=== PATIENT | male | born 1980 | race Hispanic/Latino ===

== ENCOUNTER 2024-04-16 17:46 | Emergency (ER) | payer SELFPAY ==
--- NOTE | ~2024-04-16 | XR_ITS ---
EXAM: XR hand RT min 3V DATE: 04/16/2024 18:11 HISTORY: HAND CRUSHED, OBVIOUS 2ND DIGIT INJURY/DEFORMITY . COMPARISON: None available. FINDINGS: Normal mineralization. No fracture. Dislocated right second PIP joint with 5 mm medial dis placement and one shaft width posterior displacement. No lytic or blastic lesion. Joint spaces are ma intained. No erosion or periosteal change. Soft tissue irregularity over the right second PIP joint w ith gas tracking over the joint space. IMPRESSION: Dislocated right second PIP joint with significant posterior displacement and 5 mm medial displacement. Soft tissue irregularity and gas is concerning for an open dislocation/joint space. Reviewed, dictated and finalized at location K. IMPRESSION: Dislocated right second PIP joint with significant posterior displa cement and 5 mm medial displacement. Soft tissue irregularity and gas is concer toney for an open dislocation/joint space.
--- NOTE | ~2024-04-16 | XR_ITS ---
EXAM: XR finger 2nd RT min 2V DATE: 04/16/2024 20:29 HISTORY: post reduction 2ND DIGIT . COMPARISON: Same date at 6:10 PM. FINDINGS/IMPRESSION: Successful interval reduction of the right second PIP joint. No fracture. No rad iopaque foreign body. No intra-articular gas. Reviewed, dictated and finalized at location K.
[2024-04-16 17:52] VITALS: BP 159/97; PULSE 115; RESP 20; TEMP 36.8; O2SAT 99
--- NOTE | 2024-04-16 18:34 | ED.UPPEXIN ---
HPI - Extremity Injury (Upper) General Chief Complaint: Extremity Injury, Upper <ALEJANDRA Martinez Filed: 04/17/24 03:36> Stated Complaint: finger injury <ALEJANDRA Martinez Filed: 04/17/24 03:36> Time Seen by Provider: 04/16/24 18:08 <ALEJANDRA Martinez Filed: 04/17/24 03:36> Source: patient <ALEJANDRA Martinez Filed: 04/17/24 03:36> Mode of arrival: ambulatory <ALEJANDRA Martinez Filed: 04/17/24 03:36> Limitations: no limitations and language barrier <ALEJANDRA Martinez Filed: 04/17/24 03:36> History of Present Illness HPI narrative: Patient is a 43 y/o male who presents to the ED with c/o injury to his R 2nd digit. Patient is primarily [place]ian-speaking. [employer] ict security specialist was utilized for assistance with translation. 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 He sustained a laceration to his right 2nd digit. There is an obvious deformity. He complains of pain to the finger but also reports decreased sensation to the tip of the finger. Patient believes tetanus is up-to-date. <ALEJANDRA Martinez Last Filed: 04/17/24 03:36> Related Data Allergies/Adverse Reactions: Allergies Allergy/AdvReac Type Severity Reaction Status Date / Time No Known Allergies Allergy Verified 04/16/24 18:01 <ALEJANDRA Martinez Last Filed: 04/17/24 03:36> Review of Systems Review of Systems: CONSTITUTIONAL: Denies fever, chills, or sweats. MUSCULOSKELETAL: See HPI. NEUROLOGIC: See HPI. <ALEJANDRA Martinez Filed: 04/17/24 03:36> All systems reviewed & are unremarkable except as noted in HPI and below <SILVANA MartinezC - Last Filed: 04/17/24 03:36> Exam Narrative: GENERAL: Well appearing, well-nourished, non-toxic, in no acute distress. HEAD: Normocephalic, atraumatic. RESPIRATORY: Airway patent, respirations nonlabored. CARDIOVASCULAR: Regular rate and rhythm without murmurs, rubs, or gallops. Radial pulses intact. MUSCULOSKELETAL: Limited range of motion of right 2nd digit due to pain and deformity. Dislocation deformity noted at PIP joint. 2 cm laceration over flexor surface of right 2nd digit just distal from PIP joint. Subcutaneous tissue exposed, no obvious tendon involvement. Patient able to wiggle distal portion of finger despite dislocation deformity. Subjective decreased sensation to distal finger pad of right 2nd digit, though sharp touch sensation is intact. Brisk capillary refill. SKIN: Warm, dry, normal color. NEURO: A&O X3. Speech clear. PSYCHIATRIC: Appropriate mood and affect. Normal interaction. <ALEJANDRA Martinez Last Filed: 04/17/24 03:36> Course RELEASE MANAGER/PA Physician Supervision For this patient encounter, I reviewed the RELEASE MANAGER or PA documentation, treatment plan, and medical decision making and I had [id number] time with this patient. I performed all aspects of the MDM as documented. <Kelsey Naranjo MD - Last Filed: 04/16/24 22:12> Vital Signs Vital signs: Vital Signs Temperature 98.3 F 04/16/24 17:52 Pulse Rate 115 H 04/16/24 17:52 Respiratory Rate 20 04/16/24 17:52 Blood Pressure 159/97 H 04/16/24 17:52 Pulse Oximetry 99 04/16/24 17:52 Oxygen Delivery Room Air 04/16/24 17:52 Temperature 98.3 F 04/16/24 17:52 Pulse Rate 115 H 04/16/24 17:52 Respiratory Rate 20 04/16/24 17:52 Blood Pressure 159/97 H 04/16/24 17:52 Pulse Oximetry 99 04/16/24 17:52 Oxygen Delivery Room Air 04/16/24 17:52 <Judith Tucker PA-C - Last Filed: 04/17/24 03:36> Vital Signs Temperature 98.3 F 04/16/24 17:52 Pulse Rate 115 H 04/16/24 17:52 Respiratory Rate 20 04/16/24 17:52 Blood Pressure 159/97 H 04/16/24 17:52 Pulse Oximetry 99 04/16/24 17:52 Oxygen Del
[2024-04-16] MEDS: TETANUS,DIPHTHERIA,AC PERTUSSIS ADULT (0.5 ML) BOOSTRIX IM (18:59)
[2024-04-16] MEDS: WATER, STERILE FOR INJECTION 10 ML VIAL XX (19:00)
[2024-04-16] MEDS: ceFAZolin SODIUM 1 GM VIAL IM (19:00)
== END 2024-04-16 21:40 | disposition home or self-care (01) ==
PROVIDERS: Emergency Provider Physician Assistant
DX: S61.210A Laceration without foreign body of right index finger without damage to nail, initial encounter (principal); S63.270A Dislocation of unspecified interphalangeal joint of right index finger, initial encounter; W23.1XXA Caught, crushed, jammed, or pinched between stationary objects, initial encounter; Z23 Encounter for immunization
CPT/HCPCS: 12001; 26765; 73130; 73140; 90471; 90715; 96372; 99285; J0690